=== PATIENT | male | born 1980 | race Caucasian/White ===

== ENCOUNTER 2019-09-03 08:54 | Day surgery (SDC) | payer BC ==
[~2019-09-03] VITALS: Ht 190.5 cm; Wt 154.2 kg
[~2019-09-03 08:54] MED LIST: ABILIFY 5 MG TAB5 MG PO; ADDERALL 20 MG20 MG PO; CONCERTA27 MG PO; IBUPROFEN 800800 MG PO; LEXAPRO20 MG PO; NORCO 5-325 TA1 EACH PO
[2019-09-03 12:24] VITALS: BP 134/80
[2019-09-03 12:44] VITALS: BP 134/80
--- NOTE | 2019-09-04 07:10 | O ---
[address] [address] OPERATIVE REPORT Name: CHANTALE HERRERA Room #: DEP [facility].#: [id number] Admission: 09/03/19 Attend Phys: Christiano Reed MD Discharge: 09/03/19 Date of : 80 Report #: [id number] THIS REPORT FOR: cc: Christiano Rosales MD,Christiano Rene DNP, MD ~ CC: Hodan Rosales DATE OF SERVICE: 09/03/2019 SERVICE: Orthopedics. FACILITY: [facility]. SURGEON: Christiano Reed MD SWING TENDER: None. PREOPERATIVE DIAGNOSES: 1. Left elbow pain. 2. Left elbow arthritis. POSTOPERATIVE DIAGNOSES: 1. Left elbow pain. 2. Left elbow arthritis. 3. Left elbow synovitis. PROCEDURE PERFORMED: Left elbow diagnostic arthroscopy with synovectomy and extensive debridement. COMPLICATIONS: None. DRAINS: None. SPECIMENS: None. ANESTHESIA: General. FINDINGS: 1. 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 2. Extensive osteophytes of the olecranon tip, the coronoid process and distal humerus treated with osteoplasty. 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 We had a discussion about treatment options. He had some evidence of possible loose bodies and we discussed arthroscopic debridement as a temporizing procedure for his arthritis. He understood and wished to move forward with this treatment realizing that it was temporary and incomplete solution for arthritis in general. Risks, benefits, alternatives and indications of surgery were discussed with him in detail. Risks include but not limited to pain, bleeding, infection, injury to nerves or blood vessels, persistent pain despite surgical intervention, failure of any repairs, progression of preexisting chondral injury, stiffness, need for further surgery as well as complications related to anesthesia such as stroke, heart attack, pulmonary complications, thromboembolic disease and . Despite these risks, he wished to proceed. PROCEDURE IN DETAIL: After left lower extremity was correctly identified in preoperative holding area as the operative extremity, the patient was taken to the operating room where general anesthesia was induced without complication. He was turned into lateral decubitus position with the left side up, right side down padded appropriately. Prophylactic antibiotics were administered at appropriate time. Tourniquet was applied to the left arm. Left upper extremity was then prepped and draped in standard sterile fashion. Timeout procedure performed. A 30 mL of sterile saline was injected via posterior approach into the elbow to insufflate the joint and then a skin dale incision was made. Proximal anteromedial portal was established and then a proximal anterolateral portal was established with a blunt trocar as well. Diagnostic arthroscopy revealed the above findings with significant synovitis. There were osteophytes present, the largest on the anterior side was the anterior medial humerus and then there was a small one on the lateral humerus. The shaver was used to perform a chondroplasty and then a synovectomy. There was some small chondral fragments floating around, but no bony loose bodies. After the lateral side debridement and chondroplasty was completed, I switched the scope to the lateral portal and then completed debridement on the medial side including resecting the large osteophyte on the distal humerus medially. At this point, a proximal posterior portal was established, followed by proximal posterolateral portal and a synovectomy was performed to the posterior aspect of the elbow. Again, there were no bony loose bodies present. There are osteophytes on the tip of the olecranon, which were resected. The lateral olecranon, this was also resected and then the medial and lateral humerus, these were resected as well and this allowed for improved range of motion. There were no loose bodies along the posteromedial gutter or osteophytes in this area. I was careful to protect the ulnar nerve during this. A soft spot portal was established and then the plica was resected to allow visualization of the radiocapitellar joint, again grade 4 chondral pathology was noted, but there were no loose bodies. After this was completed and the synovectomy was completed, the instruments were removed. [address] [address] OPERATIVE REPORT Name: CHANTALE HERRERA Room #: DEP [facility] Neo#: [id number] Admission: 09/03/19 Attend Phys: Christiano Reed MD Discharge: 09/03/19 Date of : 80 Report #: [id number] Arthroscopic effusion was drained. Portal sites were closed with a Monocryl stitch and 20 mL of Marcaine was injected into the soft tissues for postoperative pain control. Sterile dressing was applied, followed by a soft dressing and a sling. The patient was awakened from anesthesia and taken to recovery room in stable condition. No complications. All counts were correct. <ELECTRONICALLY SIGNED> By: Christiano Reed MD 09/04/19 0710 [id number] Christiano Reed MD /nt
== END 2019-09-03 13:18 | disposition home or self-care (01) ==
LOC: OR 08:54 → TBA 09:19 → OR 10:52
DX: M25.522 Pain in left elbow (principal); M13.822 Other specified arthritis, left elbow; M65.822 Other synovitis and tenosynovitis, left upper arm; Z98.890 Other specified postprocedural states; Z79.899 Other long term (current) drug therapy; Z87.891 Personal history of nicotine dependence
CPT/HCPCS: 50010; 50101; 50172; 50386; 51038; 54170; 56527; 57091; 57103; 57178; 62110; 62900; 70005